=== PATIENT | female | born 1980 | race Caucasian/White ===

== ENCOUNTER 2024-11-21 20:18 | Emergency (ER) | payer OTHER ==
[~2024-11-21] VITALS: Ht 167.6 cm; Wt 87.0 kg
[2024-11-21 20:27] VITALS: O2SAT 98
[2024-11-21] MEDS: LORAZEPAM 1MG TABLET PO ONE (21:32)
[2024-11-22 10:35] LABS: CLARITY URINE CLOUDY (CLEAR); COLOR URINE YELLOW (YELLOW); GLUCOSE URINE NEGATIVE (NEGATIVE); KETONES URINE 1+ (NEGATIVE); LEUKOCYTE ESTERASE URINE NEGATIVE (NEGATIVE); NITRITE URINE NEGATIVE (NEGATIVE); OCCULT BLOOD URINE NEGATIVE (NEGATIVE); PROTEIN URINE NEGATIVE (NEGATIVE); SPECIFIC GRAVITY URINE 1.021 (1.005-1.030)
[2024-11-22 11:18] LABS: HCG SCREEN NEGATIVE
[2024-11-22 11:29] LABS: SQUAMOUS EPITHELIAL CELL URINE 2+ /lpf (RARE/1+)
[2024-11-22 11:30] LABS: RBC URINE 0-2 /hpf (0-2); WBC URINE 0-2 /hpf (0-2)
[2024-11-22 11:31] LABS: BACTERIA URINE 3+
[2024-11-22 11:40] LABS: *AMPHETAMINES SCREEN URINE NEGATIVE (NEGATIVE); *BARBITURATES SCREEN URINE NEGATIVE (NEGATIVE); *BENZODIAZEPINES SCREEN URINE NEGATIVE (NEGATIVE); *COCAINE SCREEN URINE NEGATIVE (NEGATIVE); METHADONE URINE SCREEN NEGATIVE (NEGATIVE); OPIATES URINE SCREEN NEGATIVE (NEGATIVE)
[2024-11-22 11:41] LABS: CANNABINOID URINE SCREEN PRESUMPTIVE POSITIVE (NEGATIVE); ECSTASY MDMA SCREEN URINE NEGATIVE (NEGATIVE); PHENCYCLIDINE URINE SCREEN NEGATIVE (NEGATIVE)
[2024-11-22 12:13] LABS: BASOPHILS % 0.6 % (0.0-2.0); EOSINOPHILS % 0.5 % (0.0-5.0); HEMATOCRIT. 36.9 % (36.0-48.0); HEMOGLOBIN. 12.6 g/dL (12.0-16.0); LYMPHOCYTES % 18.9 % (20.0-50.0); MEAN CORPUSCULAR HEMOGLOBIN 33.6 pg (28.0-32.0); MEAN CORPUSCULAR HGB CONC 34.2 g/dL (31.0-37.0); MEAN CORPUSCULAR VOLUME 98.1 fL (81.0-99.0); MEAN PLATELET VOLUME 8.4 fl (7.4-10.4); MONOCYTES % 10.2 % (2.0-8.0); NEUTROPHILS % 69.8 % (40.0-76.0); PLATELET 212 x1000/uL (130-400); RED BLOOD CELL COUNT 3.77 mill/uL (4.2-5.4); RED CELL DISTRIBUTION WIDTH 15.4 % (11.6-14.6); WHITE BLOOD COUNT 4.7 x1000/uL (4.5-11.0)
[2024-11-22 12:21] LABS: CHLORIDE 104 mEq/L (98-107); POTASSIUM 3.9 mEq/L (3.5-5.1); SODIUM 138 mEq/L (136-145)
[2024-11-22 12:22] LABS: CARBON DIOXIDE 22 mEq/L (21-32)
[2024-11-22 12:23] LABS: CALCIUM 9.3 mg/dL (8.7-10.4)
[2024-11-22 12:27] LABS: CREATININE 0.6 mg/dL (0.6-1.0); GLUCOSE 93 mg/dL (70-105)
[2024-11-22 12:28] LABS: ETHANOL BLOOD 64 mg/dL (<10); UREA NITROGEN BLOOD 9 mg/dL (9-23)
[2024-11-22 12:29] LABS: ACETAMINOPHEN < 2 ug/mL (10-30)
[2024-11-22] MEDS: LAMOTRIGINE 25MG TABLET PO SCH (14:25)
[2024-11-22] MEDS: ARIPIPRAZOLE 5MG TABLET PO SCH (14:25)
[2024-11-22 15:14] VITALS: BP 120/68; PULSE 112; RESP 20; TEMP 36.8; O2SAT 97
[2024-11-22] MEDS: BUSPIRONE HCL 5MG TABLET PO SCH (15:19)
== END 2024-11-22 16:20 ==
LOC: ER 20:18
DX: R45.851 Suicidal ideations (principal); Z20.822 Contact with and (suspected) exposure to COVID-19; Z91.148 Patient's other noncompliance with medication regimen for other reason; Z86.59 Personal history of other mental and behavioral disorders; Z98.890 Other specified postprocedural states
CPT/HCPCS: 36415; 80048; 80305; 80307; 80320; 80329; 81003; 84703; 85025; 87426; 99285; G0480

== ENCOUNTER 2025-04-20 04:37 | Emergency (ER) | payer MEDICAID ==
[~2025-04-20] VITALS: Ht 167.6 cm; Wt 88.4 kg
[2025-04-20 04:46] VITALS: O2SAT 98
[2025-04-20 05:40] LABS: BASOPHILS % 0.8 % (0.0-2.0); EOSINOPHILS % 1.5 % (0.0-5.0); HEMATOCRIT. 35.5 % (36.0-48.0); HEMOGLOBIN. 12.0 g/dL (12.0-16.0); LYMPHOCYTES % 19.8 % (20.0-50.0); MEAN PLATELET VOLUME 7.9 fl (7.4-10.4); MONOCYTES % 9.6 % (2.0-8.0); NEUTROPHILS % 68.3 % (40.0-76.0); PLATELET 302 x1000/uL (130-400); RED BLOOD CELL COUNT 3.66 mill/uL (4.2-5.4); RED CELL DISTRIBUTION WIDTH 15.0 % (11.6-14.6)
[2025-04-20 05:52] LABS: CREATININE 0.8 mg/dL (0.6-1.0); ETHANOL BLOOD < 10 mg/dL (<10); UREA NITROGEN BLOOD 11 mg/dL (9-23)
[2025-04-20 05:54] LABS: ASPARTATE AMINOTRANSFERASE 45 IU/L (<34); BILIRUBIN DIRECT 0.1 mg/dL (<=3.0); BILIRUBIN TOTAL 0.5 mg/dL (0.1-1.0); PROTEIN TOTAL 6.8 g/dL (6.0-8.3)
[2025-04-20 06:00] LABS: HCG SCREEN NEGATIVE
[2025-04-20] MEDS: LORAZEPAM 2MG/ML UD SYRINGE IV NR (07:35)
[2025-04-20] MEDS: PANTOPRAZOLE SODIUM 40 MG/VIAL IV ONE (07:36)
[2025-04-20] MEDS: SODIUM CHLORIDE 0.9% 1,000 ML IV ONE (07:40)
[2025-04-20 10:51] LABS: CLARITY URINE CLEAR (CLEAR); COLOR URINE YELLOW (YELLOW); GLUCOSE URINE NEGATIVE (NEGATIVE); KETONES URINE TRACE (NEGATIVE); LEUKOCYTE ESTERASE URINE NEGATIVE (NEGATIVE); NITRITE URINE NEGATIVE (NEGATIVE); OCCULT BLOOD URINE NEGATIVE (NEGATIVE); PH URINE 6.0 (4.5-8.0); PROTEIN URINE NEGATIVE (NEGATIVE); SPECIFIC GRAVITY URINE 1.019 (1.005-1.030); UROBILINOGEN URINE 1.0 E.U./dL (0.2-1.0)
[2025-04-20] MEDS ORDERED: L10 MT (11:30)
[2025-04-20] MEDS ORDERED: TOPUD MT (11:30)
[2025-04-20 13:05] VITALS: BP 128/77; PULSE 92; RESP 15; TEMP 36.8; O2SAT 100
== END 2025-04-20 13:09 | disposition home or self-care (01) ==
LOC: ER 04:37 → CMPBEDREQ 04-22 09:34
DX: F10.239 Alcohol dependence with withdrawal, unspecified (principal); F41.9 Anxiety disorder, unspecified; F31.9 Bipolar disorder, unspecified; F20.9 Schizophrenia, unspecified; F15.90 Other stimulant use, unspecified, uncomplicated; F17.200 Nicotine dependence, unspecified, uncomplicated; Y90.9 Presence of alcohol in blood, level not specified
CPT/HCPCS: 80076; 80048; 81003; 80320; 84703; 83690; 85025; 36415; 93005; 96365; 96375; 99285; J2060; J2470; J7030; G0480

== ENCOUNTER 2025-05-08 11:48 | Emergency (ER) | payer MEDICAID ==
[~2025-05-08 11:48] MED LIST: L10 MT; TOPUD MT
[2025-05-08 12:03] VITALS: PULSE 91; RESP 18; O2SAT 99
== END 2025-05-08 14:18 | disposition left against medical advice (07) ==
LOC: ER 11:48
DX: R10.9 Unspecified abdominal pain (principal); Z53.21 Procedure and treatment not carried out due to patient leaving prior to being seen by health care provider
CPT/HCPCS: 99281

== ENCOUNTER 2025-05-10 20:17 | Emergency (ER) | payer MEDICAID ==
[~2025-05-10] VITALS: Ht 162.6 cm; Wt 73.0 kg
[2025-05-10 20:19] VITALS: O2SAT 95
[2025-05-10] MEDS: SODIUM CHLORIDE 0.9% 1,000 ML IV STA (20:52)
[2025-05-10] MEDS ORDERED: ONDANSETRON HCL 4MG/2ML INJ IV ONE (21:00)
[2025-05-10 21:02] LABS: BASOPHILS % 0.9 % (0.0-2.0); EOSINOPHILS % 0.4 % (0.0-5.0); HEMATOCRIT. 39.1 % (36.0-48.0); HEMOGLOBIN. 13.4 g/dL (12.0-16.0); LYMPHOCYTES % 37.5 % (20.0-50.0); MEAN PLATELET VOLUME 8.6 fl (7.4-10.4); MONOCYTES % 14.1 % (2.0-8.0); NEUTROPHILS % 47.1 % (40.0-76.0); PLATELET 183 x1000/uL (130-400); RED BLOOD CELL COUNT 3.98 mill/uL (4.2-5.4); RED CELL DISTRIBUTION WIDTH 15.3 % (11.6-14.6)
[2025-05-10 21:04] LABS: HCG SCREEN NEGATIVE
[2025-05-10 21:07] LABS: CREATININE 0.7 mg/dL (0.6-1.0); UREA NITROGEN BLOOD 6 mg/dL (9-23)
[2025-05-10 21:09] LABS: ASPARTATE AMINOTRANSFERASE 102 IU/L (<34); BILIRUBIN DIRECT 0.3 mg/dL (<=3.0); BILIRUBIN TOTAL 1.0 mg/dL (0.1-1.0); PROTEIN TOTAL 7.9 g/dL (6.0-8.3)
[2025-05-10] MEDS ORDERED: NALO4SPR BOTHNSTRLS (22:37)
[2025-05-10] MEDS ORDERED: KETOROLAC 30MG/ML VIAL IV ONE (22:45)
[2025-05-10 23:00] VITALS: BP 115/71; PULSE 80; RESP 18; TEMP 36.8; O2SAT 100
== END 2025-05-10 23:11 | disposition home or self-care (01) ==
LOC: ER 20:17
DX: F10.129 Alcohol abuse with intoxication, unspecified (principal); T51.8X1A Toxic effect of other alcohols, accidental (unintentional), initial encounter; F15.10 Other stimulant abuse, uncomplicated; Y92.89 Other specified places as the place of occurrence of the external cause; Y90.9 Presence of alcohol in blood, level not specified
CPT/HCPCS: 80076; 80048; 80320; 84703; 83690; 85025; 36415; 96360; 99283; J7030; G0480